=== PATIENT | female | born 1975 | race Caucasian/White ===

== ENCOUNTER 2017-04-20 08:35 | Outpatient (CLI) | payer OTHER ==
--- NOTE | 2017-04-20 11:26 | MRI Preliminary Report ---
Exam: MRI BRAIN W/O IMPRESSION: 1.Normal noncontrast MRI of the brain. No acute abnormality. [facility] SITE ID: [id number]
--- NOTE | 2017-04-20 11:28 | MRI Report ---
EXAM: MRI BRAIN WITHOUT CONTRAST EXAM DATE: 04/20/2017 09:46 AM. CLINICAL HISTORY: HEADACHE. Constant headache for 6 weeks. Worse posteriorly. Pounding. COMPARISON: None. TECHNIQUE: Multiplanar, multisequence T1-weighted and fluid-sensitive MR sequences of the brain were performed. Sequences optimized for routine evaluation. Other: None. IV Contrast: None. FINDINGS: Brain Volume: Normal for age. Parenchyma/Dura: No mass, acute infarct or hemorrhage. No white matter lesions identified. Ventricles/Cisterns: No hydrocephalus. No abnormal extra-axial fluid collection or hemorrhage. Orbits: Symmetric and unremarkable. Sella Turcica: The pituitary gland, cavernous sinuses, suprasellar cistern and optic chiasm are unrem arkable. IAC: Symmetric and unremarkable. Vasculature: Normal signal flow void is seen in the major arterial structures at the skull base. Sinuses: No acute appearing sinus disease. Bones: No focal pathologic appearing marrow signal changes. Other: None. IMPRESSION: 1.Normal noncontrast MRI of the brain. No acute abnormality. [facility] Referring Provider Line: [phone] SITE ID: [id number]
== END 2017-04-20 08:36 | disposition home or self-care (01) ==
LOC: DI 08:35
PROVIDERS: ATTEND Registered Nurse Diabetes Educator
DX: R51 Headache (principal)
CPT/HCPCS: 70551